=== PATIENT | male | born 1945 | race Caucasian/White ===

== ENCOUNTER 2023-03-16 04:09 | Inpatient (IN) ==
[2023-03-16] MEDS ORDERED: ONDANSETRON INJ 2 MG/ML 2 ML VIAL IV STA ×2 (04:24→06:40)
[2023-03-16] MEDS ORDERED: ONDANSETRON INJ 2 MG/ML 2 ML VIAL ONE (04:25)
[2023-03-16 04:49] LABS: Basophils # (auto) 0.03 K/uL (0.00-0.20); Basophils % (auto) 0.2 %; Hematocrit (blood only) 41.1 % (42.0-52.0); Hemoglobin 14.6 g/dl (14.0-18.0); Immature Granulocytes # (auto) 0.05 K/uL (0.01-0.20); Immature Granulocytes % (auto) 0.3 %; Lymphocytes # (auto) 0.99 K/uL (1.20-3.40); Lymphocytes % (auto) 6.6 %; Mean Corpuscular Hemoglobin 31.3 pg (25.0-34.0); Mean Corpuscular Hgb Conc 35.5 g/dL (32.0-36.0); Mean Corpuscular Volume 88.2 fL (80.0-100.0); Mean Platelet Volume 9.4 fL (9.4-12.4); Monocytes # (auto) 1.39 K/uL (0.11-0.59); Monocytes % (auto) 9.2 %; Neutrophils # (auto) 12.62 K/uL (1.40-6.50); Neutrophils % (auto) 83.7 %; Platelet Count 237 K/uL (130-400); RDW Coefficient of Variation 13.2 % (11.5-14.5); RDW Standard Deviation 42.5 fL (36.4-46.3); Red Blood Count 4.66 M/uL (4.70-6.10); White Blood Count 15.08 K/ul (4.8-10.8)
[2023-03-16 05:04] LABS: Albumin Globulin Ratio 1.1 (0.9-2); BUN Creatinine Ratio 23.5 (10-20); Bilirubin,Total 0.8 mg/dl (0.2-1.0); Calcium 8.9 mg/dl (8.6-10.3); Creatinine Clr Calc Pharmacy 70.6 ml/min; Est GFR (African American) 85.8 ml/min; Est GFR (Non-African American) 74.1 ml/min; Globulin 3.7 gm/dl (2.5-4.0); Potassium 3.9 mmol/L (3.5-5.1); Total Protein 7.7 gm/dl (6.0-8.3)
[2023-03-16 05:28] LABS: Influenza A virus by PCR Negative (Neg); Influenza B virus by PCR Negative (Neg); RSV by PCR Negative (Neg); SARS CoV2 RNA(COVID-19) Ceph NEGATIVE (Negative)
[2023-03-16] MEDS ORDERED: SODIUM CHLORIDE 0.9% 1,000 ML IV ONE ×2 (06:40→09:12)
--- NOTE | 2023-03-16 06:42 | Emergency Department Note ---
Impression & Plan Sepsis, Acute UTI (urinary tract infection), Elevated procalcitonin, Nausea & vomiting ED Provider Note HISTORY OF PRESENT ILLNESS: Patient is a 77-year-old male presenting with epigastric abdominal pain, nausea and subjective fevers for the last 3 days. Patient reports he has been feeling generally unwell for the last 3 days. Reports nausea but only 1 episode of vomiting. Denies any diarrhea. Reports poor oral intake secondary to his nausea. Denies any rashes. Denies any recent sick contact exposures or recent travel. He has not measured his fever at home, but states he gets hot and sweaty and then very chilled with rigors. Denies any dysuria or hematuria. Denies any chest pain or shortness of breath. Denies any cough. Denies any rashes or recent sick exposures. Patient reports feeling very weak and rundown for the last few days ROS: as above PHYSICAL EXAM: Constitutional: Patient appears in no acute distress. HENT: Head: Normocephalic and atraumatic. Eyes: EOMI, PERRL Mouth/Throat: Mucous membranes moist. Neck: Trachea midline. Neck supple. Cardiovascular: Tachycardic with regular rhythm. No murmurs, rubs or gallops. Intact distal pulses. Pulmonary/Chest: No respiratory distress. Breath sounds clear and equal bilaterally. No wheezes or rales. Abdominal: Abdomen soft, no rebound or guarding. Epigastric TTP Musculoskeletal: No edema, tenderness or deformity noted. Skin: Warm and dry. No rash, erythema, pallor or cyanosis Psychiatric: Appropriate mood and affect for situation. Neurological: Alert and keenly responsive. CN II-XII grossly intact, moving all extremities equally and fully. MDM: - Vitals signs showed fever and tachycardia. - History obtained via patient. Patient presents with epigastric abdominal pain, nausea and subjective fevers. Reports symptoms of been ongoing for the la st 3 days. He reports nausea and one episode of vomiting. Denies any diarrhea. Reports poor oral intake secondary to his nausea. He denies any rashes. Denies recent travel or sick contact exposures. Reports subjective fevers and chills at home. Denies any dysuria or hematuria. He reports feeling very weak and rundown for the last 3 days - Chronic conditions affecting care: HLD - Differential diagnoses include, but are not limited to: Pneumonia; UTI; viral syndrome; cholecystitis - Order placed for continuous cardiac monitoring. At this time, monitor showed rate of 110 bpm with normal sinus rhythm, per my interpretation. - External medical records reviewed. - EKG reviewed by myself showed normal sinus rhythm. Rate tachycardic at 126 bpm. QTc 417. No acute ischemic changes - There was a delay in care secondary to patient waiting in the waiting room. On my evaluation, I added sepsis workup. - Laboratory workup interpreted by myself showed leukocytosis (WBC 15.08) with left shift; hyponatremia (Na 131); normal troponin; normal lactate; normal procalcitonin (1.54) - Negative Lyme and anaplasma smear - COVID/flu/RSV negative - CXR negative for pneumonia, per my interpretation - UA showed evidence of infection, but no bacteria. - Blood cultures obtained - CT abdomen/pelvis with IV contrast showed findings concerning for left-sided pyelonephritis. - Patient given 2.5L NS and 4 mg IV zofran (x2) in ER. On reassessment, the patient still complaining of nausea. Given 5 mg of IV Compazine. - Given 2 g IV cefepime in the ER. - Discussion was had with geriatric social worker about patient's case and need for admission - Hospitalist consulted for admission - [facility] 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 Beliefs That Will Affect Care: None marital status: Current Living Situation: Spouse current occupational status: retired Feels Safe at Home: Yes Assistive Devices: Denture - Upper, Denture - Lower and Glasses Allergies Allergies Allergy/AdvReac Type Severity Reaction Status Date / Time No Known Drug Allergies Allergy Verified 03/16/23 09:56 Home Meds Home Medications Medication Instructions Recorded Confirmed simvastatin 20 mg tablet 20 mg PO HS 03/16/23 03/16/23 Previous Rx's Medication Instructions Recorded oxybutynin chloride 5 mg 5 mg PO DAILY #7 tabs 02/22/23 tablet,extended release 24 hr (Ditropan XL) Results & Data (ED) Vital Signs Vital Signs - 24 hr 03/16/23 04:11 03/16/23 09:31 Temperature 37.6 C H Temperature Source Temporal Artery Scan Pulse Rate 127 H 106 H Respiratory Rate 18 Respiratory Effort / Characteristics Non-Labored Spontaneous Respiratory Depth Normal Respiratory Pattern Regular Blood Pressure 115/81 Blood Pressure Mean 92 Pulse Oximetry 95 Oxygen Delivery Method Room Air Sepsis Recent Fever Within 48 Hours Yes Sepsis New/Unexplained Change in Mental Status No Sepsis Action Taken by Nursing No Action Required Laboratory Data 03/16/23 04:25 03/16/23 04:25 Lab Results 03/16/23 03/16/23 03/16/23 Range/Units 04:25 04:25 04:25 WBC 15.08 H (4.8-10.8) K/ul RBC 4.66 L (4.70-6.10) M/uL Hgb 14.6 (14.0-18.0) g/dl Hct 41.1 L (42.0-52.0) % MCV 88.2 (80.0-100.0) fL MCH 31.3 (25.0-34.0) pg MCHC 35.5 (32.0-36.0) g/dL RDW Std Deviation 42.5 (36.4-46.3) fL RDW Coeff of Rc 13.2 (11.5-14.5) % Plt Count 237 (130-400) K/uL MPV 9.4 (9.4-12.4) fL Immature Gran % (Auto) 0.3 % Neut % (Auto) 83.7 % Lymph % (Auto) 6.6 % [place] % (Auto) 9.2 % Eos % (Auto) 0.0 % Baso % (Auto) 0.2 % Neut # (Auto) 12.62 H (1.40-6.50) K/uL Lymph # (Auto) 0.99 L (1.20-3.40) K/uL [place] # (Auto) 1.39 H (0.11-0.59) K/uL Eos # (Auto) 0.00 (0.00-0.50) K/uL Baso # (Auto) 0.03 (0.00-0.20) K/uL Immature Gran # (Auto) 0.05 (0.01-0.20) K/uL Sodium 131 L (136-145) mmol/L Potassium 3.9 (3.5-5.1) mmol/L Chloride 99 (98-107) mmol/L Carbon Dioxide 21 (21-32) mmol/L Anion Gap 11 (3-11) BUN 23 (6-23) mg/dl Creatinine 0.98 (0.6-1.4) mg/dl Est Cr Clr Drug Dosing 70.6 ml/min Est GFR ( Amer) 85.8 ml/min Est GFR (Non-Af Amer) 74.1 ml/min BUN/Creatinine Ratio 23.5 H (10-20) Glucose 146 H (70-99(Fasting)) mg/dl Lactate (0.4-2.0) mmol/L Calcium 8.9 (8.6-10.3) mg/dl Total Bilirubin 0.8 (0.2-1.0) mg/dl AST 16 (13-39) U/L ALT 17 (7-52) U/L Alkaline Phosphatase 62 (34-104) U/L Troponin I High Sens 13.0 (0-20) pg/ml Total Protein 7.7 (6.0-8.3) gm/dl Albumin 4.0 (3.4-5.0) gm/dl Globulin 3.7 (2.5-4.0) gm/dl Albumin/Globulin Ratio 1.1 (0.9-2) Procalcitonin (0-0.5) ng/ml Urine Color Urine Appearance (Clear) Urine pH (4.5-7.5) Ur Specific [place] (1.000-1.030) Urine Protein (Negative) Urine Glucose (UA) (Negative) Urine Ketones (Negative) Urine Blood (Negative) Urine Nitrite (Negative) Urine Bilirubin (Negative) Urine Urobilinogen (Negative) Ur Leukocyte Esterase (Negative) Urine WBC (Auto) (0-5) /hpf Urine RBC (Auto) (0-4) /hpf U Hyaline Cast (Auto) (0-5) /lpf U Epithel Cells (Auto) (0-5) /lpf Urine Bacteria (Auto) (Negative) Anaplasma Smear Lyme Disease IgG Ab (Negative) Lyme Disease IgM Ab (Negative) SARS-CoV-2 (PCR) NEGATIVE (Negative) Influenza Type A (PCR) Negative (Neg) Influenza Type B (PCR) Negative (Neg) RSV (RT-PCR) Negative (Neg) 03/16/23 03/16/23 03/16/23 Range/Units 07:31 07:31 07:31 WBC (4.8-10.8) K/ul RBC (4.70-6.10) M/uL Hgb (14.0-18.0) g/dl Hct (42.0-52.0) % MCV (80.0-100.0) fL MCH (25.0-34.0) pg MCHC (32.0-36.0) g/dL RDW Std Deviation (36.4-46.3) fL RDW Coeff of Rc (11.5-14.5) % Plt Count (130-400) K/uL MPV (9.4-12.4) fL Immature Gran % (Auto) % Neut % (Auto) % Lymph % (Auto) % [place] % (Auto) % Eos % (Auto) % Baso % (Auto) % Neut # (Auto) (1.40-6.50) K/uL Lymph # (Auto) (1.20-3.40) K/uL [place] # (Auto) (0.11-0.59) K/uL Eos # (Auto) (0.00-0.50) K/uL Baso # (Auto) (0.00-0.20) K/uL Immature Gran # (Auto) (0.01-0.20) K/uL Sodium (136-145) mmol/L Potassium (3.5-5.1) mmol/L Chloride (98-107) mmol/L Carbon Dioxide (21-32) mmol/L Anion Gap (3-11) BUN (6-23) mg/dl Creatinine (0.6-1.4) mg/dl Est Cr Clr Drug Dosing ml/min Est GFR ( Amer) ml/min Est GFR (Non-Af Amer) ml/min BUN/Creatinine Ratio (10-20) Glucose (70-99(Fasting)) mg/dl Lactate 1.1 (0.4-2.0) mmol/L Calcium (8.6-10.3) mg/dl Total Bilirubin (0.2-1.0) mg/dl AST (13-39) U/L ALT (7-52) U/L Alkaline Phosphatase (34-104) U/L Troponin I High Sens (0-20) pg/ml Total Protein (6.0-8.3) gm/dl Albumin (3.4-5.0) gm/dl Globulin (2.5-4.0) gm/dl Albumin/Globulin Ratio (0.9-2) Procalcitonin 1.54 H (0-0.5) ng/ml Urine Color Urine Appearance (Clear) Urine pH (4.5-7.5) Ur Specific [place] (1.000-1.030) Urine Protein (Negative) Urine Glucose (UA) (Negative) Urine Ketones (Negative) Urine Blood (Negative) Urine Nitrite (Negative) Urine Bilirubin (Negative) Urine Urobilinogen (Negative) Ur Leukocyte Esterase (Negative) Urine WBC (Auto) (0-5) /hpf Urine RBC (Auto) (0-4) /hpf U Hyaline Cast (Auto) (0-5) /lpf U Epithel Cells (Auto) (0-5) /lpf Urine Bacteria (Auto) (Negative) Anaplasma Smear See Comment Lyme Disease IgG Ab Negative (Negative) Lyme Disease IgM Ab Negative (Negative) SARS-CoV-2 (PCR) (Negative) Influenza Type A (PCR) (Neg) Influenza Type B (PCR) (Neg) RSV (RT-PCR) (Neg) 03/16/23 Range/Units 09:09 WBC (4.8-10.8) K/ul RBC (4.70-6.10) M/uL Hgb (14.0-18.0) g/dl Hct (42.0-52.0) % MCV (80.0-100.0) fL MCH (25.0-34.0) pg MCHC (32.0-36.0) g/dL RDW Std Deviation (36.4-46.3) fL RDW Coeff of Rc (11.5-14.5) % Plt Count (130-400) K/uL MPV (9.4-12.4) fL Immature Gran % (Auto) % Neut % (Auto) % Lymph % (Auto) % [place] % (Auto) % Eos % (Auto) % Baso % (Auto) % Neut # (Auto) (1.40-6.50) K/uL Lymph # (Auto) (1.20-3.40) K/uL [place] # (Auto) (0.11-0.59) K/uL Eos # (Auto) (0.00-0.50) K/uL Baso # (Auto) (0.00-0.20) K/uL Immature Gran # (Auto) (0.01-0.20) K/uL Sodium (136-145) mmol/L Potassium (3.5-5.1) mmol/L Chloride (98-107) mmol/L Carbon Dioxide (21-32) mmol/L Anion Gap (3-11) BUN (6-23) mg/dl Creatinine (0.6-1.4) mg/dl Est Cr Clr Drug Dosing ml/min Est GFR ( Amer) ml/min Est GFR (Non-Af Amer) ml/min BUN/Creatinine Ratio (10-20) Glucose (70-99(Fasting)) mg/dl Lactate (0.4-2.0) mmol/L Calcium (8.6-10.3) mg/dl Total Bilirubin (0.2-1.0) mg/dl AST (13-39) U/L ALT (7-52) U/L Alkaline Phosphatase (34-104) U/L Troponin I High Sens (0-20) pg/ml Total Protein (6.0-8.3) gm/dl Albumin (3.4-5.0) gm/dl Globulin (2.5-4.0) gm/dl Albumin/Globulin Ratio (0.9-2) Procalcitonin (0-0.5) ng/ml Urine Color Yellow Urine Appearance Clear (Clear) Urine pH 6.0 (4.5-7.5) Ur Specific [place] > 1.045 H (1.000-1.030) Urine Protein 1+ H (Negative) Urine Glucose (UA) Negative (Negative) Urine Ketones 2+ H (Negative) Urine Blood 2+ H (Negative) Urine Nitrite Negative (Negative) Urine Bilirubin Negative (Negative) Urine Urobilinogen Negative (Negative) Ur Leukocyte Esterase Trace H (Negative) Urine WBC (Auto) >30 H (0-5) /hpf Urine RBC (Auto) 10-30 H (0-4) /hpf U Hyaline Cast (Auto) 1-5 (0-5) /lpf U Epithel Cells (Auto) 0-5 (0-5) /lpf Urine Bacteria (Auto) Negative (Negative) Anaplasma Smear Lyme Disease IgG Ab (Negative) Lyme Disease IgM Ab (Negative) SARS-CoV-2 (PCR) (Negative) Influenza Type A (PCR) (Neg) Influenza Type B (PCR) (Neg) RSV (RT-PCR) (Neg) Administered Medications Sodium Chloride (Nss 1000ml) 1,000 mls @ 999 mls/hr IV .Q1H1M ONE Stop: 03/16/23 10:12 Last Admin: 03/16/23 09:56 Dose: 999 mls/hr Documented By: AM Discontinued Medications Sodium Chloride (Nss 1000ml) 1,000 mls @ 999 mls/hr IV .Q1H1M ONE Stop: 03/16/23 07:40 Last Infusion: 03/16/23 08:48 Dose: 0 mls/hr Documented By: Admin: 03/16/23 06:49 Dose: 999 mls/hr Documented By: MADHAVI Cefepime HCl (Maxipime) 2,000 mg in 20 mls @ 5 mls/min IV NOW STA; Protocol Stop: 03/16/23 09:15 Last Admin: 03/16/23 09:54 Dose: 5 mls/min Documented By: AM Sodium Chloride (Nss 1000ml) 500 mls @ 999 mls/hr IV .Q31M ONE Stop: 03/16/23 09:42 Last Admin: 03/16/23 09:59 Dose: 999 mls/hr Documented By: AM Prochlorperazine (Compazine) 1 mls @ 1 mls/min IV ONE ONE Stop: 03/16/23 09:31 Last Admin: 03/16/23 09:56 Dose: 1 mls/min Documented By: AM Ioversol (Optiray 320 100ml) 92 ml IV ONCE ONE Stop: 03/16/23 08:09 Last Admin: 03/16/23 08:09 Dose: 92 ml Documented By: HERMINIA Ondansetron HCl (Ondansetron Inj 2 Mg/Ml 2 Ml Vial) 4 mg IV NOW STA Stop: 03/16/23 04:25 Last Admin: 03/16/23 04:26 Dose: 4 mg Documented By: LC Ondansetron HCl (Ondansetron Inj 2 Mg/Ml 2 Ml Vial) Confirm Administered Dose 4 mg .ROUTE .STK-MED ONE Stop: 03/16/23 04:26 Last Admin: 03/16/23 04:26 Dose: Not Given Documented By: LC Ondansetron HCl (Ondansetron Inj 2 Mg/Ml 2 Ml Vial) 4 mg IV NOW STA Stop: 03/16/23 06:41 Last Admin: 03/16/23 06:49 Dose: 4 mg Documented By: MADHAVI Imaging Data Radiologist's Impression: Chest X-Ray 03/16/23 04:15 XR chest 1V not portable HISTORY: fever COMPARISON: None. FINDINGS: No pneumothorax. No pleural effusions. The lungs are clear. The heart is normal in size. No evidence for pulmonary edema. No acute fractures identified. IMPRESSION: No acute process. ACT 112: Negative or not required by law. Electronically signed by: Emory Fulton M.D. 03/16/2023 7:51 AM Abdomen/Pelvis CT 03/16/23 06:[address] WITH IV CONTRAST CT DOSE: 1298.06 mGy.cm HISTORY: epigastric abd pain TECHNIQUE: Multiaxial CT images of the abdomen and pelvis were performed following the use of intravenous contrast. A dose lowering technique was utilized adhering to the principles of ALARA. COMPARISON STUDY: Abdomen and pelvis CT 01/12/2023. FINDINGS: The left lung base is clear. There is a cluster of small subpleural nodules along the right minor fissure measuring up to 6 mm. These are likely benign. No pneumoperitoneum. No pneumatosis. No suspicious lytic or blastic osseous lesions. There is a single mildly enlarged right hilar lymph node on image 16 measuring 12 mm. The liver, gallbladder, pancreas, spleen, and adrenal glands unremarkable. The main portal vein is patent. No retroperitoneal lymphadenopathy. Normal caliber abdominal aorta. No pelvic lymphadenopathy or pelvic free fluid. The prostate gland remains mildly enlarged. Persistent asymmetric thickening within the left posterior bladder wall measuring up to 7 mm. The calcified lesion at this location has decreased in size or been removed in the interval. There is a punctate calcification remaining within the left posterior bladder wall image 327. There is a 4 mm calcification also seen at the left posterior bladder wall image 332. This could be within the wall of the bladder or possibly represent a small bladder stone. No left-sided hydronephrosis. There is heterogeneous enhancement within the left kidney with left perinephric edema. This favors a left-sided pyelonephritis. A few bilateral renal hypodense lesions are again noted. These favor cysts. There are few punctate left renal calculi. No ureteral calculi. Colonic diverticulosis. No evidence for acute diverticulitis. No bowel wall thickening or obstruction. Normal appendix. IMPRESSION: 1. Heterogeneous enhancement within the left kidney with mild left perinephric edema/fat stranding. This likely represents a left-sided pyelonephritis. Recommend correlation with urinalysis. 2. Persistent asymmetric left posterior bladder wall thickening. The calcified lesion at this location has decreased in size or been partially removed in the interval. If not already performed, cystoscopy recommended for further evaluation. 3. Left-sided nephrolithiasis. No ureteral stones. No hydronephrosis. 4. No bowel wall thickening or obstruction. 5. Colonic diverticulosis. 6. Additional findings as described above. ACT 112: Negative or not required by law. Electronically signed by: Emory Fulton M.D. 03/16/2023 8:42 AM Discharge Plan Visit Data Chief Complaint: Flu Like Symptoms Stated Complaint: FLU OR COVID ED Provider: Jerica Corcoran Discharge Problem: Sepsis, Acute UTI (urinary tract infection), Elevated procalcitonin, Nausea & vomiting Forms Stand Alone Forms: My [employer] Prescriptions Prescriptions: No Action oxybutynin chloride [Ditropan XL] 5 mg tablet extended release 24hr 5 mg PO DAILY Qty: 7 0RF simvastatin 20 mg tablet 20 mg PO HS Referrals Referrals: Kimberly Sorenson CRNP [Primary Care Provider] -
--- NOTE | 2023-03-16 07:54 | XRay Report ---
XR chest 1V not portable HISTORY: fever COMPARISON: None. FINDINGS: No pneumothorax. No pleural effusions. The lungs are clear. The heart is normal in size. No evidence for pulmonary edema. No acute fractures identified. IMPRESSION: No acute process. ACT 112: Negative or not required by law. Electronically signed by: Emory Fulton M.D. 03/16/2023 7:51 AM
[2023-03-16] MEDS ORDERED: OPTIRAY 320 100ml IV ONE (08:08)
[2023-03-16 09:11] LABS: Procalcitonin 1.54 ng/ml (0-0.5)
[2023-03-16] MEDS ORDERED: SODIUM CHLORIDE 0.9% 500 ML IV ONE (09:12)
[2023-03-16] MEDS ORDERED: CEFEPIME 2,000 MG/20 ML VIAL IV STA (09:12)
[2023-03-16 09:16] LABS: Lyme Ab IgG w/WB Rflx Negative (Negative); Lyme Ab IgM w/WB Rflx Negative (Negative)
--- NOTE | 2023-03-16 09:23 | CT Scan Report ---
ABDOMEN AND PELVIS CT WITH IV CONTRAST CT DOSE: 1298.06 mGy.cm HISTORY: epigastric abd pain TECHNIQUE: Multiaxial CT images of the abdomen and pelvis were performed following the use of intrave nous contrast. A dose lowering technique was utilized adhering to the principles of ALARA. COMPARISON STUDY: Abdomen and pelvis CT 01/12/2023. FINDINGS: The left lung base is clear. There is a cluster of small subpleural nodules along the right minor fissure measuring up to 6 mm. These are likely benign. No pneumoperitoneum. No pneumatosis. No suspicious lytic or blastic osseous lesions. There is a single mildly enlarged right hilar lymph nod e on image 16 measuring 12 mm. The liver, gallbladder, pancreas, spleen, and adrenal glands unremarka ble. The main portal vein is patent. No retroperitoneal lymphadenopathy. Normal caliber abdominal aor ta. No pelvic lymphadenopathy or pelvic free fluid. The prostate gland remains mildly enlarged. Persi stent asymmetric thickening within the left posterior bladder wall measuring up to 7 mm. The calcifie d lesion at this location has decreased in size or been removed in the interval. There is a punctate calcification remaining within the left posterior bladder wall image 327. There is a 4 mm calcificati on also seen at the left posterior bladder wall image 332. This could be within the wall of the bladd er or possibly represent a small bladder stone. No left-sided hydronephrosis. There is heterogeneous enhancement within the left kidney with left perinephric edema. This favors a left-sided pyelonephrit is. A few bilateral renal hypodense lesions are again noted. These favor cysts. There are few punctat e left renal calculi. No ureteral calculi. Colonic diverticulosis. No evidence for acute diverticulit is. No bowel wall thickening or obstruction. Normal appendix. IMPRESSION: 1. Heterogeneous enhancement within the left kidney with mild left perinephric edema/fat stranding. T his likely represents a left-sided pyelonephritis. Recommend correlation with urinalysis. 2. Persistent asymmetric left posterior bladder wall thickening. The calcified lesion at this locatio n has decreased in size or been partially removed in the interval. If not already performed, cystosco py recommended for further evaluation. 3. Left-sided nephrolithiasis. No ureteral stones. No hydronephrosis. 4. No bowel wall thickening or obstruction. 5. Colonic diverticulosis. 6. Additional findings as described above. ACT 112: Negative or not required by law. Electronically signed by: Emory Fulton M.D. 03/16/2023 8:42 AM
[2023-03-16 09:25] LABS: Appearance Urine Clear (Clear); Bacteria Urine Automated Negative (Negative); Bilirubin Urine Negative (Negative); Blood Urine 2+ (Negative); Color Urine Yellow; Epithelial Cell Urine Auto 0-5 /lpf (0-5); Glucose Urine UA Negative (Negative); Ketones Urine 2+ (Negative); Leukocyte Esterase Urine Trace (Negative); Nitrite Urine Negative (Negative); Protein Urine 1+ (Negative); Specific Gravity Urine > 1.045 (1.000-1.030); Urobilinogen Urine Negative (Negative); WBC Urine Automated >30 /hpf (0-5)
[2023-03-16] MEDS ORDERED: PROCHLORPERAZINE 1 ML IV ONE (09:30)
--- NOTE | 2023-03-16 10:10 | History & Physical Report ---
Date of Service March 16, 2023 Assessment & Plan (1) Sepsis: Plan: -Admit to med/tele -Currently stable and non-toxic appearing -Noted to be tachycardic at 127 with leukocytosis of 15 and UTI/possible pyelonephritis as the likely source of infection -No sign of obstruction on CT, will order prn bladder scans to ensure he is not retaining -Lactate WNL at 1.1, has been hemodynamically stable -S/P one dose of Cefepime and 1.5L NSS in the ED -Will give 1L Normosol bolus STAT to complete his sepsis bolus of 2.5L -No previous history of resistant UTI's, will continue him of Ceftriaxone for now -Will continue light IV hydration after his sepsis bolus as he appears dehydrated on exam -Monitor urine and blood cultures -PRN tylenol for fever and mild pain -SQ Lovenox for DVT PPX -Clear liquid diet for now, advance as tolerated -AM CBC, BMP, Mag (2) Acute UTI (urinary tract infection): Plan: -Most likely source of his sepsis at this time -No other complaints, CXR WNL, no other sources of infection noted on CT of the abd/pelvis -Continue ceftriaxone, monitor urine and blood cultures -Continue prn Ditrophan (3) Nausea & vomiting: Plan: -Likely due to his UTI and possible pyelonephritis -Has had more benefit from Compazine than zofran, will continue with prn Compazine for now (4) Bladder carcinoma: Plan: -Continue to follow with Urology outpatient (5) High cholesterol: Plan: -Continue simvastatin (6) Pyelonephritis: Plan The patient was discussed with Dr. Lazo at the time of the admission History of Present Illness Chief Complaint: Fever, chills, generalized weakness, nausea Primary Care Provider: RONALD Montgomery Evangelista is a 77 year old male with a PMH significant for overactive bladder, hematuria, recently diagnosed bladder wall tumor S/P Transurethral Resection of the Bladder Tumor; Right Retrograde Pyelogram(Bilateral) with Dr. Gonzales on 02/22, and hyperlipidemia who presented to the [facility] ED on 03/16 with complaints of fever, chills, generalized weakness, and nausea. In the ED the patient was noted to be tachycardic at 127, with temperature of 37.6, but otherwise stable. Labs were significant for a leukocytosis of 15 with neutrophil predominance of 12, sodium of 131, procal of 1.54, and UA with trace leukocyte esterase and > 30 WBC's. Prior to admission the patient was given a dose of Cefepime, 1.5L NSS, 2 doses of IV zofran, and a dose of Compazine. At the time of the exam the patient was lying in bed in no acute distress with his sitting bedside. He states that he had been in his normal state of health until approximately 3 days ago when he started to develop generalized weakness, feeling febrile but no official temp, chills, and nausea without vomiting. He has had poor oral intake over the past 3 days due to his symptoms, he has had very little to eat or drink. When asked, he denies recent dysuria or hematuria, but feels as though he has been urinating more frequently and in little amounts each time. Per chart review, the patient recently underwent TURP of the Bladder wall Tumor and Right Retrograde Pyelogram(Bilateral) with Dr. Gonzales on 02/22. We discussed code status, he wishes to be a full code with his making medical decisions for him if he could not make them himself. Please refer to Dr. Lazo's attestaion for any changes to the treatment plan Allergies Allergy/AdvReac Type Severity Reaction Status Date / Time No Known Drug Allergies Allergy Verified 03/16/23 09:56 Home Medications Medication Instructions Recorded Confirmed Type oxybutynin chloride 5 mg 5 mg PO DAILY #7 tabs 02/22/23 03/16/23 Rx tablet,extended release 24 hr (Ditropan XL) simvastatin 20 mg tablet 20 mg PO HS 03/16/23 03/16/23 History Past Med/Surg History Medical History High cholesterol Surgical History Hx of colonoscopy gema gastro Hx of parotidectomy 1994 Family History Mother Diabetes Social History (Updated 02/04/23 @ 11:40 by ADIA Brown) Smoking Status: Former smoker Second Hand Exposure: No; Do You Dip or Chew Tobacco: No; Hx Alcohol Use: No Hx Substance Use: No Preferred Language: Gu[place]ian Communication Ability: Effective Drug Safety Scientist Required: No Beliefs That Will Affect Care: None marital status: Current Living Situation: Spouse current occupational status: retired Other Information That Helps Us Care for You: No Feels Safe at Home: Yes Safety Concerns: Feels Safe At This Time Assistive Devices: Denture - Upper, Denture - Lower and Glasses Physical Exam Physical Exam: Physical Exam: General: In no acute distress, stated age, well-nourished, non-toxic appearing HEENT: Normocephalic, atraumatic, no scleral icterus, pupils around round, symmetrical, and reactive to light, dry mucus membranes, trachea midline, no thyromegaly Chest/Pulm: No respiratory distress, symmetrical chest expansion, clear breath sounds throughout Cardiac: RRR, no murmurs noted Abdomen: Negative for ascites and bruising, normoactive bowel sounds, soft, non-tender to palpation throughout : Negative CVA tenderness BL Musculoskeletal: Symmetrical and without signs of acute trauma, upper and lower extremities with full ROM, no atrophy, spasticity, or flaccidity Extremities: Radial, dorsalis pedis, and posterior tibial pulses are intact and symmetrical, no edema noted in the BL LE's Skin: Warm, dry, no rashes , lesions, or scars noted Neuro: Alert and oriented to person, place, month, year, and president, no focal defects, no tremors noted Psych: No acute distress, calm and cooperative during the exam Results & Data Results & Data Vital Signs (Past 12 Hours) Vital Signs Temp Pulse Resp BP Pulse Ox O2 Del Method 03/16/23 09:31 106 H 03/16/23 04:11 37.6 C H 127 H 18 115/81 95 Room Air Laboratory Results Abnormal lab results 03/16/23 03/16/23 03/16/23 Range/Units 04:25 04:25 07:31 WBC 15.08 H (4.8-10.8) K/ul RBC 4.66 L (4.70-6.10) M/uL Hct 41.1 L (42.0-52.0) % Neut # (Auto) 12.62 H (1.40-6.50) K/uL Lymph # (Auto) 0.99 L (1.20-3.40) K/uL [place] # (Auto) 1.39 H (0.11-0.59) K/uL Sodium 131 L (136-145) mmol/L BUN/Creatinine Ratio 23.5 H (10-20) Glucose 146 H (70-99(Fasting)) mg/dl Procalcitonin 1.54 H (0-0.5) ng/ml Ur Specific [place] (1.000-1.030) Urine Protein (Negative) Urine Ketones (Negative) Urine Blood (Negative) Ur Leukocyte Esterase (Negative) Urine WBC (Auto) (0-5) /hpf Urine RBC (Auto) (0-4) /hpf 03/16/23 Range/Units 09:09 WBC (4.8-10.8) K/ul RBC (4.70-6.10) M/uL Hct (42.0-52.0) % Neut # (Auto) (1.40-6.50) K/uL Lymph # (Auto) (1.20-3.40) K/uL [place] # (Auto) (0.11-0.59) K/uL Sodium (136-145) mmol/L BUN/Creatinine Ratio (10-20) Glucose (70-99(Fasting)) mg/dl Procalcitonin (0-0.5) ng/ml Ur Specific [place] > 1.045 H (1.000-1.030) Urine Protein 1+ H (Negative) Urine Ketones 2+ H (Negative) Urine Blood 2+ H (Negative) Ur Leukocyte Esterase Trace H (Negative) Urine WBC (Auto) >30 H (0-5) /hpf Urine RBC (Auto) 10-30 H (0-4) /hpf Diagnostic Findings Chest X-Ray 03/16/23 04:15 XR chest 1V not portable HISTORY: fever COMPARISON: None. FINDINGS: No pneumothorax. No pleural effusions. The lungs are clear. The heart is normal in size. No evidence for pulmonary edema. No acute fractures identified. IMPRESSION: No acute process. ACT 112: Negative or not required by law. Electronically signed by: Emory Fulton M.D. 03/16/2023 7:51 AM Abdomen/Pelvis CT 03/16/23 06:[address] WITH IV CONTRAST CT DOSE: 1298.06 mGy.cm HISTORY: epigastric abd pain TECHNIQUE: Multiaxial CT images of the abdomen and pelvis were performed following the use of intravenous contrast. A dose lowering technique was uti lized adhering to the principles of ALARA. COMPARISON STUDY: Abdomen and pelvis CT 01/12/2023. FINDINGS: The left lung base is clear. There is a cluster of small subpleural nodules along the right minor fissure measuring up to 6 mm. These are likely benign. No pneumoperitoneum. No pneumatosis. No suspicious lytic or blastic osseous lesions. There is a single mildly enlarged right hilar lymph node on image 16 measuring 12 mm. The liver, gallbladder, pancreas, spleen, and adrenal glands unremarkable. The main portal vein is patent. No retroperitoneal lymphadenopathy. Normal caliber abdominal aorta. No pelvic lymphadenopathy or pelvic free fluid. The prostate gland remains mildly enlarged. Persistent asymmetric thickening within the left posterior bladder wall measuring up to 7 mm. The calcified lesion at this location has decreased in size or been removed in the interval. There is a punctate calcification remaining within the left posterior bladder wall image 327. There is a 4 mm calcification also seen at the left posterior bladder wall image 332. This could be within the wall of the bladder or possibly represent a small bladder stone. No left-sided hydronephrosis. There is heterogeneous enhancement within the left kidney with left perinephric edema. This favors a left-sided pyelonephritis. A few bilateral renal hypodense lesions are again noted. These favor cysts. There are few punctate left renal calculi. No ureteral calculi. Colonic diverticulosis. No evidence for acute diverticulitis. No bowel wall thickening or obstruction. Normal appendix. IMPRESSION: 1. Heterogeneous enhancement within the left kidney with mild left perinephric edema/fat stranding. This likely represents a left-sided pyelonephritis. Recommend correlation with urinalysis. 2. Persistent asymmetric left posterior bladder wall thickening. The calcified lesion at this location has decreased in size or been partially removed in the interval. If not already performed, cystoscopy recommended for further evaluation. 3. Left-sided nephrolithiasis. No ureteral stones. No hydronephrosis. 4. No bowel wall thickening or obstruction. 5. Colonic diverticulosis. 6. Additional findings as described above. ACT 112: Negative or not required by law. Electronically signed by: Emory Fulton M.D. 03/16/2023 8:42 AM ECG Additional Comments: Sinus tachycardia Left anterior fascicular block Abnormal ECG No previous ECGs available Code Status & VTE Plan Code Status Full code VTE Prophylaxis Plan VTE Prophylaxis will be ordered: Yes Supervising Physician Co-Signing Physician Notes I personally saw and examined the patient. I verified all vergara points and agree with Erasmo White PA-C with the following exceptions and/or additions: 77 year old presents to the ER with 3 days of generalized weakness and chills. TURP 02/22. CT concerning for left sided pyelonephritis. O/E HS increased rate, regular rhythm, apical murmur, Chest CTAB, Abdo SNT, no CVA tenderness, no pedal edema A/P Sepsis - lactate 1.1, UTI suspected source, follow up urine and blood cultures, ceftriaxone 2g IV daily Acute pyelonephritis, possible prostatitis - would advise 4 weeks of antibiotics given recent TURP to cover for prostatitis PG Care Time/CCT Total # of Minutes Spent Total Time Spent with Patient: Total time spent is greater than 50% in coordination of care (as documented) at patient's floor/unit and/or counseling patient: Coding [place] [address] INT INP/OBS CARE 3/75MIN Patient Type Established Medical Decision Making Moderate Complexity Diagnoses Sepsis A41.9 Acute UTI (urinary tract infection) N39.0 Nausea & vomiting R11.2 Bladder carcinoma C67.9 High cholesterol E78.00 Pyelonephritis N12
[2023-03-16] MEDS ORDERED: ACETAMINOPHEN 1,000 MG/100 ML VIAL IV STA (10:11)
[2023-03-16] MEDS ORDERED: LACTATED RINGER'S 1,000 ML IV ONE (10:11)
[2023-03-16] MEDS ORDERED: PLASMA-LYTE A 1,000 ML IV ONE (10:26)
[2023-03-16] MEDS ORDERED: PLASMA-LYTE A 1,000 ML IV SCH (12:45)
[2023-03-16] MEDS: ACETAMINOPHEN 325 MG TAB PO PRN (16:16)
[2023-03-16] MEDS: PROCHLORPERAZINE 5 MG in SYRINGE 4 ML IV PRN ×2 (17:22→23:39)
[2023-03-16] MEDS: SIMVASTATIN 20 MG TAB PO SCH (20:51)
[2023-03-16] MEDS: ENOXAPARIN INJ 40 MG/0.4 ML SYR SQ SCH (20:51)
[2023-03-16] MEDS ORDERED: cefTRIAXone SODIUM 2,000 MG in DEXTROSE 5% 50 ML IV SCH (21:00)
--- NOTE | 2023-03-17 06:31 | Hospitalist Progress Note ---
Date of Service March 17, 2023 Assessment & Plan (1) Sepsis: Plan: -Currently stable and non-toxic appearing -Noted to be tachycardic at 127 with leukocytosis of 15 yesterday. and UTI/possible pyelonephritis as the likely source of infection. WBC 11.89 this morning -No sign of obstruction on CT, will order prn bladder scans to ensure he is not retaining -Lactate WNL at 1.1, has been hemodynamically stable -S/P one dose of Cefepime and 1.5L NSS in the ED - Fluids given in ED per Sepsis protocol -Urine culture growing enterococcus, plan to switch to Unasyn -Will continue light IV hydration; Plasmalyte @ 100ml/hr -Monitor urine and blood cultures -PRN tylenol for fever and mild pain -Clear liquid diet for now, advance as tolerated -Trend CBC, BMP, Mag (2) Acute UTI (urinary tract infection): Plan: -Most likely source of his sepsis at this time -No other complaints, CXR WNL, no other sources of infection noted on CT of the abd/pelvis - Urine culture growing enterococcus, plan to switch to Unasyn -Continue prn Ditrophan (3) Nausea & vomiting: Plan: -Likely due to his UTI and possible pyelonephritis -Has had more benefit from Compazine than zofran, will continue with prn Compazine for now (4) Bladder carcinoma: Plan: -Continue to follow with Urology outpatient (5) High cholesterol: Plan: -Continue simvastatin Plan SQ Lovenox for DVT PPX Admission and Anticipated Discharge Date Admission Date: March 16, 2023 Supervising Physician Co-Signing Physician Notes I personally examined the patient and verified vergara points of history and exam, discussed case, and agree with decision making and plan documented by Dr. Ventura. Confirmed sepsis with pyelonephritis and +ucx for enterococcus. Patient s/p cefepime and fluid bolus in ED, now on ampicillin sulbactam IV, awaiting cultures, will then transition to PO. Patient without complaints this morning and well appearing on exam today. Lungs clear b/l to auscultation, regular rate and rhythm, no abdominal pain, no CVA tenderness, no LE edema. Of note, enlarged right hilar 12 mm lymph node incidental finding on CT with recommendation of 6 month f/u CT. Subjective Still feeling slightly nauseous and feverish with no sweats or chills. Weakness is improving. Slight uneasiness but no pain in epigastric abd. region. No diarrhea, vomitting, dysuria, hematuria, hematochezia. Former smoker and currently taking simvastatin for HLD control. Review of Systems Respiratory: No SOB, occasional cough with dry heaving and flem Cardiovascular: Additional Comments: No chest pain or palpitations Gastrointestinal: Slight epigastric abd. uneasiness, no abd pain, diarrhea, melena or hematochezia Physical Exam Constitutional: Alert and in no acute distress Eyes: PEERL, EOMI, no icteric sclera Respiratory: Lungs CTA b/l, no wheezing, rales, rhonchi, symmetrical chest wall expansion b/l, no CVA tenderness b/l Cardiovascular: Normal r/r, no r/m/g, no carotid bruits Gastrointestinal (Abdomen): Soft and non distended, non tender upon palpation in all 4 quadrants, normal bs Skin: No rashes Neurologic: normal gait and ambulation Results & Data Results & Data Vital Signs (Past 12 Hours) Vital Signs Temp Pulse Pulse Resp BP Pulse Ox O2 Del Method 03/17/23 03:00 38.3 C H 98 H 18 113/71 92 Room Air 03/16/23 22:00 37.9 C H 108 H 18 124/72 92 Room Air 03/16/23 23:18 108 H 03/16/23 19:00 39.3 C H 98 H 18 118/69 92 Room Air Resident Activity Tracking Resident Involvement: Resident Care Provided Care Provided: Adult Hospital Medicine
[2023-03-17] MEDS: PROCHLORPERAZINE 5 MG in SYRINGE 4 ML IV PRN (08:32)
[2023-03-17] MEDS: OXYBUTYNIN CHLORIDE XL 5 MG TABCR PO SCH (08:33)
[2023-03-17] MEDS: ACETAMINOPHEN 325 MG TAB PO PRN (08:34)
[2023-03-17 09:28] LABS: Basophils # (auto) 0.02 K/uL (0.00-0.20); Basophils % (auto) 0.2 %; Hematocrit (blood only) 35.2 % (42.0-52.0); Hemoglobin 12.4 g/dl (14.0-18.0); Immature Granulocytes # (auto) 0.05 K/uL (0.01-0.20); Immature Granulocytes % (auto) 0.4 %; Lymphocytes # (auto) 1.15 K/uL (1.20-3.40); Lymphocytes % (auto) 9.7 %; Mean Corpuscular Hemoglobin 31.3 pg (25.0-34.0); Mean Corpuscular Hgb Conc 35.2 g/dL (32.0-36.0); Mean Corpuscular Volume 88.9 fL (80.0-100.0); Mean Platelet Volume 9.7 fL (9.4-12.4); Monocytes % (auto) 10.1 %; Neutrophils # (auto) 9.47 K/uL (1.40-6.50); Neutrophils % (auto) 79.6 %; Platelet Count 189 K/uL (130-400); RDW Coefficient of Variation 13.7 % (11.5-14.5); RDW Standard Deviation 44.9 fL (36.4-46.3); Red Blood Count 3.96 M/uL (4.70-6.10); White Blood Count 11.89 K/ul (4.8-10.8)
[2023-03-17 09:45] LABS: Creatinine Clr Calc Pharmacy 69.7 ml/min; Est GFR (African American) 83.8 ml/min; Est GFR (Non-African American) 72.3 ml/min; Potassium 3.5 mmol/L (3.5-5.1)
[2023-03-17] MEDS: AMPICILLIN/SULBACTAM SOD 3,000 MG in 0.9 % SODIUM CHLORIDE 100 ML IV SCH ×2 (12:29→18:25)
[2023-03-17] MEDS: PLASMA-LYTE A 1,000 ML IV SCH (13:26)
--- NOTE | 2023-03-17 17:56 | Electrocardiogram Report ---
Test Reason : Blood Pressure : / mmHG Vent. Rate : 126 BPM Atrial Rate : 126 BPM P-R Int : 174 ms QRS Dur : 092 ms QT Int : 288 ms P-R-T Axes : 064 -47 048 degrees QTc Int : 417 ms Sinus tachycardia Left anterior fascicular block Abnormal ECG No previous ECGs available Confirmed by Fabricio Godoy ([id number]) on 03/17/2023 5:56:12 PM Referred By: Confirmed By:Delroy Godoy
[2023-03-17] MEDS: ENOXAPARIN INJ 40 MG/0.4 ML SYR SQ SCH (20:25)
[2023-03-17] MEDS: SIMVASTATIN 20 MG TAB PO SCH (20:25)
[2023-03-18] MEDS: AMPICILLIN/SULBACTAM SOD 3,000 MG in 0.9 % SODIUM CHLORIDE 100 ML IV SCH ×3 (00:07→11:22)
[2023-03-18 03:35] LABS: Basophils # (auto) 0.02 K/uL (0.00-0.20); Basophils % (auto) 0.2 %; Eosinophils # (auto) 0.01 K/uL (0.00-0.50); Eosinophils % (auto) 0.1 %; Hematocrit (blood only) 34.1 % (42.0-52.0); Hemoglobin 11.9 g/dl (14.0-18.0); Immature Granulocytes # (auto) 0.02 K/uL (0.01-0.20); Immature Granulocytes % (auto) 0.2 %; Lymphocytes # (auto) 1.45 K/uL (1.20-3.40); Lymphocytes % (auto) 15.6 %; Mean Corpuscular Hemoglobin 31.5 pg (25.0-34.0); Mean Corpuscular Hgb Conc 34.9 g/dL (32.0-36.0); Mean Corpuscular Volume 90.2 fL (80.0-100.0); Mean Platelet Volume 9.8 fL (9.4-12.4); Monocytes # (auto) 1.23 K/uL (0.11-0.59); Monocytes % (auto) 13.2 %; Neutrophils # (auto) 6.57 K/uL (1.40-6.50); Neutrophils % (auto) 70.7 %; Platelet Count 178 K/uL (130-400); RDW Coefficient of Variation 13.5 % (11.5-14.5); RDW Standard Deviation 44.7 fL (36.4-46.3); Red Blood Count 3.78 M/uL (4.70-6.10)
[2023-03-18 03:48] LABS: BUN Creatinine Ratio 24.4 (10-20); Calcium 7.9 mg/dl (8.6-10.3); Est GFR (African American) 96.9 ml/min; Est GFR (Non-African American) 83.6 ml/min; Magnesium 1.9 mg/dl (1.7-2.4); Potassium 3.7 mmol/L (3.5-5.1)
[2023-03-18] MEDS ORDERED: MAGNESIUM SULFATE / D5W 1 GM/100 ML BAG IV ONE (04:30)
[2023-03-18] MEDS: PLASMA-LYTE A 1,000 ML IV SCH ×2 (08:05)
[2023-03-18] MEDS: OXYBUTYNIN CHLORIDE XL 5 MG TABCR PO SCH (08:14)
[2023-03-18 10:07] LABS: Troponin I High Sensitivity 21.8 pg/ml (0-20)
--- NOTE | 2023-03-18 11:18 | Discharge Summary ---
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 Gonzales on 02/22, and hyperlipidemia who presented to the [facility] ED on 03/16 with complaints of fever, chills, generalized weakness, and nausea. In the ED the patient was noted to be tachycardic at 127, with temperature of 37.6, but otherwise stable. Labs were significant for a leukocytosis of 15 with neutrophil predominance of 12, sodium of 131, procal of 1.54, and UA with trace leukocyte esterase and > 30 WBC's. Prior to admission the patient was given a dose of Cefepime, 1.5L NSS, 2 doses of IV zofran, and a dose of Compazine. At the time of the exam the patient was lying in bed in no acute distress with his sitting bedside. He states that he had been in his normal state of health until approximately 3 days ago when he started to develop generalized weakness, feeling febrile but no official temp, chills, and nausea without vomiting. He has had poor oral intake over the past 3 days due to his symptoms, he has had very little to eat or drink. When asked, he denies recent dysuria or hematuria, but feels as though he has been urinating more frequently and in little amounts each time. Per chart review, the patient recently underwent TURP of the Bladder wall Tumor and Right Retrograde Pyelogram(Bilateral) with Dr. Gonzales on 02/22. We discussed code status, he wishes to be a full code with his making medical decisions for him if he could not make them himself. Principal Diagnosis Pyelonephritis Discharge Exam Constitutional: well-appearing, no acute distress HEENT: NCAT, no conjunctival injection CV: regular rhythm, no murmur appreciated, extremities well-perfused, no LE edema Resp: CTABL, no wheezes/rales/rhonchi appreciated, no increased work of breathing GI: soft, nondistended, nontender MSK: no gross deformities appreciated Skin: warm, dry, no rash appreciated Neuro: alert, oriented, no focal neurologic deficit appreciated Discharge Data Allergies Allergy/AdvReac Type Severity Reaction Status Date / Time No Known Drug Allergies Allergy Verified 03/16/23 09:56 Consultations 03/16/23 09:44 ED Decision to Admit Stat 03/18/23 09:22 Consult Cardiology Routine Ordered Studies 03/16/23 06:43 CT Abd and Pelvis [CT abd pelvis IV con only] Stat Laboratory Results WBC 9.30 K/ul (4.8-10.8) 03/18/23 03:20 RBC 3.78 M/uL (4.70-6.10) L 03/18/23 03:20 Hgb 11.9 g/dl (14.0-18.0) L 03/18/23 03:20 Hct 34.1 % (42.0-52.0) L 03/18/23 03:20 MCV 90.2 fL (80.0-100.0) 03/18/23 03:20 MCH 31.5 pg (25.0-34.0) 03/18/23 03:20 MCHC 34.9 g/dL (32.0-36.0) 03/18/23 03:20 RDW Std Deviation 44.7 fL (36.4-46.3) 03/18/23 03:20 RDW Coeff of Rc 13.5 % (11.5-14.5) 03/18/23 03:20 Plt Count 178 K/uL (130-400) 03/18/23 03:20 MPV 9.8 fL (9.4-12.4) 03/18/23 03:20 Immature Gran % (Auto) 0.2 % 03/18/23 03:20 Neut % (Auto) 70.7 % 03/18/23 03:20 Lymph % (Auto) 15.6 % 03/18/23 03:20 [place] % (Auto) 13.2 % 03/18/23 03:20 Eos % (Auto) 0.1 % 03/18/23 03:20 Baso % (Auto) 0.2 % 03/18/23 03:20 Neut # (Auto) 6.57 K/uL (1.40-6.50) H 03/18/23 03:20 Lymph # (Auto) 1.45 K/uL (1.20-3.40) 03/18/23 03:20 [place] # (Auto) 1.23 K/uL (0.11-0.59) H 03/18/23 03:20 Eos # (Auto) 0.01 K/uL (0.00-0.50) 03/18/23 03:20 Baso # (Auto) 0.02 K/uL (0.00-0.20) 03/18/23 03:20 Immature Gran # (Auto) 0.02 K/uL (0.01-0.20) 03/18/23 03:20 Sodium 134 mmol/L (136-145) L 03/18/23 03:20 Sodium Cancelled 03/18/23 03:20 Potassium 3.7 mmol/L (3.5-5.1) 03/18/23 03:20 Potassium Cancelled 03/18/23 03:20 Chloride 101 mmol/L (98-107) 03/18/23 03:20 Chloride Cancelled 03/18/23 03:20 Carbon Dioxide 26 mmol/L (21-32) 03/18/23 03:20 Carbon Dioxide Cancelled 03/18/23 03:20 Anion Gap 7 (3-11) 03/18/23 03:20 Anion Gap Cancelled 03/18/23 03:20 BUN 21 mg/dl (6-23) 03/18/23 03:20 BUN Cancelled 03/18/23 03:20 Creatinine 0.86 mg/dl (0.6-1.4) 03/18/23 03:20 Creatinine Cancelled 03/18/23 03:20 Est Cr Clr Drug Dosing 81.0 ml/min 03/18/23 03:20 Est Cr Clr Drug Dosing Cancelled 03/18/23 03:20 Est GFR ( Amer) 96.9 ml/min 03/18/23 03:20 Est GFR ( Amer) Cancelled 03/18/23 03:20 Est GFR (Non-Af Amer) 83.6 ml/min 03/18/23 03:20 Est GFR (Non-Af Amer) Cancelled 03/18/23 03:20 BUN/Creatinine Ratio 24.4 (10-20) H 03/18/23 03:20 BUN/Creatinine Ratio Cancelled 03/18/23 03:20 Glucose 109 mg/dl (70-99(Fasting)) H 03/18/23 03:20 Glucose Cancelled 03/18/23 03:20 Lactate 1.1 mmol/L (0.4-2.0) 03/16/23 07:31 Calcium 7.9 mg/dl (8.6-10.3) L 03/18/23 03:20 Calcium Cancelled 03/18/23 03:20 Magnesium 1.9 mg/dl (1.7-2.4) 03/18/23 03:20 Total Bilirubin 0.8 mg/dl (0.2-1.0) 03/16/23 04:25 AST 16 U/L (13-39) 03/16/23 04:25 ALT 17 U/L (7-52) 03/16/23 04:25 Alkaline Phosphatase 62 U/L (34-104) 03/16/23 04:25 Troponin I High Sens 21.8 pg/ml (0-20) H 03/18/23 03:20 Total Protein 7.7 gm/dl (6.0-8.3) 03/16/23 04:25 Albumin 4.0 gm/dl (3.4-5.0) 03/16/23 04:25 Globulin 3.7 gm/dl (2.5-4.0) 03/16/23 04:25 Albumin/Globulin Ratio 1.1 (0.9-2) 03/16/23 04:25 Procalcitonin 1.54 ng/ml (0-0.5) H 03/16/23 07:31 Urine Color Yellow 03/16/23 09:09 Urine Appearance Clear (Clear) 03/16/23 09:09 Urine pH 6.0 (4.5-7.5) 03/16/23 09:09 Ur Specific [place] > 1.045 (1.000-1.030) H 03/16/23 09:09 Urine Protein 1+ (Negative) H 03/16/23 09:09 Urine Glucose (UA) Negative (Negative) 03/16/23 09:09 Urine Ketones 2+ (Negative) H 03/16/23 09:09 Urine Blood 2+ (Negative) H 03/16/23 09:09 Urine Nitrite Negative (Negative) 03/16/23 09:09 Urine Bilirubin Negative (Negative) 03/16/23 09:09 Urine Urobilinogen Negative (Negative) 03/16/23 09:09 Ur Leukocyte Esterase Trace (Negative) H 03/16/23 09:09 Urine WBC (Auto) >30 /hpf (0-5) H 03/16/23 09:09 Urine RBC (Auto) 10-30 /hpf (0-4) H 03/16/23 09:09 U Hyaline Cast (Auto) 1-5 /lpf (0-5) 03/16/23 09:09 U Epithel Cells (Auto) 0-5 /lpf (0-5) 03/16/23 09:09 Urine Bacteria (Auto) Negative (Negative) 03/16/23 09:09 Anaplasma Smear See Comment 03/16/23 07:31 Lyme Disease IgG Ab Negative (Negative) 03/16/23 07:31 Lyme Disease IgM Ab Negative (Negative) 03/16/23 07:31 SARS-CoV-2 (PCR) NEGATIVE (Negative) 03/16/23 04:25 Influenza Type A (PCR) Negative (Neg) 03/16/23 04:25 Influenza Type B (PCR) Negative (Neg) 03/16/23 04:25 RSV (RT-PCR) Negative (Neg) 03/16/23 04:25 Impressions Chest X-Ray 03/16/23 04:15 XR chest 1V not portable HISTORY: fever COMPARISON: None. FINDINGS: No pneumothorax. No pleural effusions. The lungs are clear. The heart is normal in size. No evidence for pulmonary edema. No acute fractures identified. IMPRESSION: No acute process. ACT 112: Negative or not required by law. Electronically signed by: Emory Fulton M.D. 03/16/2023 7:51 AM Abdomen/Pelvis CT 03/16/23 06:[address] WITH IV CONTRAST CT DOSE: 1298.06 mGy.cm HISTORY: epigastric abd pain TECHNIQUE: Multiaxial CT images of the abdomen and pelvis were performed following the use of intravenous contrast. A dose lowering technique was utilized adhering to the principles of ALARA. COMPARISON STUDY: Abdomen and pelvis CT 01/12/2023. FINDINGS: The left lung base is clear. There is a cluster of small subpleural nodules along the right minor fissure measuring up to 6 mm. These are likely benign. No pneumoperitoneum. No pneumatosis. No suspicious lytic or blastic osseous lesions. There is a single mildly enlarged right hilar lymph node on image 16 measuring 12 mm. The liver, gallbladder, pancreas, spleen, and adrenal glands unremarkable. The main portal vein is patent. No retroperitoneal lymphadenopathy. Normal caliber abdominal aorta. No pelvic lymphadenopathy or pelvic free fluid. The prostate gland remains mildly enlarged. Persistent asymmetric thickening within the left posterior bladder wall measuring up to 7 mm. The calcified lesion at this location has decreased in size or been removed in the interval. There is a punctate calcification remaining within the left posterior bladder wall image 327. There is a 4 mm calcification also seen at the left posterior bladder wall image 332. This could be within the wall of the bladder or possibly represent a small bladder stone. No left-sided hydronephrosis. There is heterogeneous enhancement within the left kidney with left perinephric edema. This favors a left-sided pyelonephritis. A few bilateral renal hypodense lesions are again noted. These favor cysts. There are few punctate left renal calculi. No ureteral calculi. Colonic diverticulosis. No evidence for acute diverticulitis. No bowel wall thickening or obstruction. Normal appendix. IMPRESSION: 1. Heterogeneous enhancement within the left kidney with mild left perinephric edema/fat stranding. This likely represents a left-sided pyelonephritis. Recommend correlation with urinalysis. 2. Persistent asymmetric left posterior bladder wall thickening. The calcified lesion at this location has decreased in size or been partially removed in the interval. If not already performed, cystoscopy recommended for further e valuation. 3. Left-sided nephrolithiasis. No ureteral stones. No hydronephrosis. 4. No bowel wall thickening or obstruction. 5. Colonic diverticulosis. 6. Additional findings as described above. ACT 112: Negative or not required by law. Electronically signed by: Emory Fulton M.D. 03/16/2023 8:42 AM Hospital Course (1) Sepsis: Sepsis secondary to Pyelonephritis -Met SIRS with tachycardia and leukocytosis on admission, both have resolved-> was given fluids per sepsis guidelines -No sign of obstruction on CT; left-sided pyelonephritis CXR WNL, no other sources of infection noted on CT of the abd/pelvis -Lactate WNL at 1.1, has been hemodynamically stable -Urine culture growing enterococcus, treated with Unasyn, switch to Augmentin x 14 days total SVT - evaluated by cardiology, asymptomatic and no further work-up required Nausea/Vomiting - resolved and able to tolerate good PO intake prior to d/c Bladder Carcinoma - -Continue to follow with Urology outpatient HLD - -Continue simvastatin (2) Acute UTI (urinary tract infection): (3) Nausea & vomiting: (4) Bladder carcinoma: (5) High cholesterol: (6) SVT (supraventricular tachycardia): Total Time Total Time Spent Total Time Spent (In Minutes): see attending attestation Discharge Plan Discharge Items Patient Disposition: Home - Self-Care Reason For Visit: SEPSIS, UTI, HYPONATREMIA Discharge Diagnosis: UTI Activity: Per Instructions section Non-emergency contact: Primary Care Provider Call non-emergency contact if: you have any medication questions and your symptoms worsen Follow-up/Referrals: Kimberly Sorenson CRNP [Primary Care Provider] - (Please call to schedule this appointment at your earliest convenience.) Diet: Regular Addtl Attending Provider Instructions: We are treating you for a urinary tract infection. We are going to send a prescription for Augmentin. We are going to send a prescription for it to your pharmacy. You should take it twice a day for the next 12 days. Your next dose will be tonight. Otherwise we did not make any changes to your medications. Please make an appointment to follow up with [facility] primary care doctor next week. Pending Studies at Discharge: No Stand-Alone Forms: My [facility] [employer], Smoking Cessation Medications and DC Order Prescriptions: New amoxicillin-pot clavulanate 875-125 mg tablet 1 tab PO BID 12 Days Qty: 25 0RF Continued oxybutynin chloride [Ditropan XL] 5 mg tablet extended release 24hr 5 mg PO DAILY Qty: 7 0RF simvastatin 20 mg tablet 20 mg PO HS Discharge Orders: Discharge Order (Routine); Ordered 03/18/23 Ordered By: Grace Castillo/Other Patient Handouts: Oxybutynin ER Oral Tab, Urinary Tract Infections in Men, UTIs Understanding, Sepsis Admission Data Admit Date/Time: 03/16/23 10:10 Attending Provider: Fabricio Trujillo Admit Provider: Darnell Lazo Primary Care Provider: Kimberly Sorenson Other Providers: Darnell Lazo ; Fabricio Godoy Other Interventions: Discharge Summary Assessment (RN) Last Done: 03/18/23 15:04 Supervising Physician Co-Signing Physician Notes Attending attestation Pt seen and examined in concert with Dr. Ventura. In agreement with the documented findings as noted in the resident documentation with any exceptions or additions as noted here. Resting comfortably in bed without acute complaint. On examination, S1/S2 nl RRR no MCG. CTAB. Abd NT/ND BS+ve Pyelonephritis vs. ascended UTI with sepsis on presentation - complete course of Augmentin x 14 days Bladder carcinoma - urology aware and to follow in outpatient setting Else see resident documentation as noted. Total attending physician time spent with this patient's care on the day of discharge: 35 minutes. Resident Activity Tracking Resident Involvement: Resident Care Provided Care Provided: Adult Hospital Medicine
--- NOTE | 2023-03-18 15:42 | Cardiology Consultation ---
Date of Consultation March 18, 2023 Assessment & Plan (1) SVT (supraventricular tachycardia): Plan 1. Supraventricular tachycardia: Patient was noted to have frequent atrial ectopy on telemetry. This was not symptomatic. Did develop an episode of SVT which also involved right bundle branch block aberrancy. This did not produce symptoms. He did not describe symptoms of SVT at other times. He otherwise appears to be healthy individual with a normal cardiac examination. Baseline EKG was not concerning. Think this is a benign phenomenon that is not cause symptoms in the past. Do not believe this requires further evaluation at this time. History of Present Illness Reason for Consultation: Tachycardia Requesting Physician: Lorenzo Attending Physician: Fabricio Trujillo MD History of Present Illness The patient is a 77-year-old gentleman without a known history of cardiac disease who was admitted for symptoms sepsis. He recently underwent urologic procedure appear to have the subsequent infection. His symptoms involved development of diffuse body aches, fevers and chills and marked fatigue. During his hospitalization his symptoms have improved to the point where he is now anticipating discharge. It seems that the patient was placed on telemetry for sepsis. Last evening around 3:00 a.m. he was noted on monitoring to have an episode of tachycardia lasting 1 minutes. Apparently this was initially reported as ventricular tac hycardia. The patient remembers nursing staff contacting him at that time. He states he was up using the restroom. He denies any symptoms at that time. He specifically denied any palpitations, chest pain, dizziness, lightheadedness or breathing difficulty. In general he is very active individual. He prides himself on being able to complete physical work without limitation. 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 No exertional chest pain. He has generally not been aware of any palpitations. He denies episodes of dizziness or lightheadedness. He cannot recall ever suffering syncopal episode. He does not have any monitoring devices at home for checking his heart rate or blood pressure. Allergies Allergy/AdvReac Type Severity Reaction Status Date / Time No Known Drug Allergies Allergy Verified 03/16/23 09:56 Home Medications Medication Instructions Recorded Confirmed Type oxybutynin chloride 5 mg 5 mg PO DAILY #7 tabs 02/22/23 03/16/23 Rx tablet,extended release 24 hr (Ditropan XL) simvastatin 20 mg tablet 20 mg PO HS 03/16/23 03/16/23 History amoxicillin 875 mg-potassium 1 tab PO BID 12 days #25 tabs 03/18/23 Rx clavulanate 125 mg tablet Patient History Medical History High cholesterol Surgical History Hx of colonoscopy gema gastro Hx of parotidectomy 1994 Family History Mother Diabetes Social History (Updated 02/04/23 @ 11:40 by ADIA Brown) Smoking Status: Former smoker Second Hand Exposure: No; Do You Dip or Chew Tobacco: No; Hx Alcohol Use: No Hx Substance Use: No Preferred Language: Sami Communication Ability: Effective Callisthenics Instructor Required: No Beliefs That Will Affect Care: None marital status: Current Living Situation: Spouse current occupational status: retired Other Information That Helps Us Care for You: No Feels Safe at Home: Yes Safety Concerns: Feels Safe At This Time Assistive Devices: Glasses Review of Systems Review of Systems: Per HPI Physical Exam Physical Exam: The patient is alert and oriented. Mood and affect appeared normal. He answered all questions appropriately. HEENT: Pupils are equal and reactive to light and accommodation. Extraocular movements are intact. The sclerae are anicteric. Neuro: Cranial nerves intact Lungs: Clear to auscultation bilaterally. He has good air movement without use of accessory muscles. No rales wheezes or rhonchi. Cardiac: Heart demonstrates a regular rate and rhythm. Normal S1 and S2. No murmurs on examination. Pulses: The patient has palpable radial pulses bilaterally that are equal in intensity Extremities: There was no evidence of hypoperfusion. There is no cyanosis or clubbing. There is no edema. Skin: I did not appreciate any rashes on examination today. Results & Data Vital Signs (Past 12 Hours) Vital Signs Temp Pulse Pulse Pulse Resp BP BP 03/18/23 14:02 73 03/18/23 15:04 36.3 C L 79 78 16 113/72 137/89 03/18/23 11:16 36.3 C L 78 16 113/72 03/18/23 10:19 75 03/18/23 07:54 37.0 C 79 16 122/72 03/18/23 07:28 03/18/23 06:00 87 Pulse Ox O2 Del Method 03/18/23 14:02 03/18/23 15:04 95 03/18/23 11:16 95 Room Air 03/18/23 10:19 03/18/23 07:54 95 Room Air 03/18/23 07:28 Room Air 03/18/23 06:00 Laboratory Results Abnormal Lab Results 03/18/23 03/18/23 03/18/23 03:20 03:20 03:20 WBC 9.30 RBC 3.78 L Hgb 11.9 L Hct 34.1 L MCV 90.2 MCH 31.5 MCHC 34.9 RDW Std Deviation 44.7 RDW Coeff of Rc 13.5 Plt Count 178 MPV 9.8 Immature Gran % (Auto) 0.2 Neut % (Auto) 70.7 Lymph % (Auto) 15.6 White % (Auto) 13.2 Eos % (Auto) 0.1 Baso % (Auto) 0.2 Neut # (Auto) 6.57 H Lymph # (Auto) 1.45 White # (Auto) 1.23 H Eos # (Auto) 0.01 Baso # (Auto) 0.02 Immature Gran # (Auto) 0.02 Sodium Cancelled 134 L Potassium Cancelled 3.7 Chloride Cancelled 101 Carbon Dioxide Cancelled 26 Anion Gap Cancelled 7 BUN Cancelled 21 Creatinine Cancelled 0.86 Est Cr Clr Drug Dosing Cancelled 81.0 Est GFR ( Amer) Cancelled 96.9 Est GFR (Non-Af Amer) Cancelled 83.6 BUN/Creatinine Ratio Cancelled 24.4 H Glucose Cancelled 109 H Calcium Cancelled 7.9 L Magnesium 1.9 Troponin I High Sens 21.8 H ECG Additional Comments: EKG obtained on 03/16/2023: Sinus tachycardia. Left anterior fascicular block. PG Care Time/CCT Total # of Minutes Spent Total Time Spent with Patient: Total time spent is greater than 50% in coordination of care (as documented) at patient's floor/unit and/or counseling patient: Coding Level of Care Code 84776 INT INP/OBS CARE 3/75MIN Diagnoses SVT (supraventricular tachycardia) I47.1
== END 2023-03-18 15:40 | disposition home or self-care (01) | DRG 872 ==
LOC: ED 04:09 → EDINP 10:10 → SUATTDRO 10:10 → EDINP 12:13 → 2N 15:42